=== PATIENT | male | born 1955 | race Caucasian/White ===

== ENCOUNTER 2019-10-16 07:08 | Day surgery (SDC) | payer MEDICARE ==
[2019-10-15 09:22] VITALS: BMI 17.6
[2019-10-16] MEDS ORDERED: ePHEDrine/0.9% NaCl/PF SYRINGE 50 mg/10 ml ONE (09:03)
[2019-10-16] MEDS ORDERED: PROPOFOL 200 MG/20 ML VIAL ONE (09:03)
[2019-10-16] MEDS ORDERED: Lidocaine 1% PF 5 ML VIAL ONE (09:03)
--- NOTE | 2019-10-16 09:27 | OP ---
DATE OF PROCEDURE: 10/16/2019 PROCEDURES PERFORMED: 1. Colonoscopy. 2. Polypectomy. PREPROCEDURE DIAGNOSIS: Colorectal cancer screening. POSTPROCEDURE DIAGNOSIS: Four polyps removed from the colon, submitted to Pathology. RECOMMENDATIONS: Await histopathology. Repeat colonoscopy in 3 years. ANESTHESIA: TIVA. PROCEDURE IN DETAIL: After the patient was informed of the risk, benefits, and possible complications of endoscopy including perforation, bleeding, reaction to medication, and aspiration, informed consent was obtained. The patient was brought to endoscopy suite, where he was sedated in gradual fashion. Once he was comfortable, a rectal examination was performed. The endoscope was advanced from the anal canal through the colon to the cecum, which was identified by ileocecal valve and appendiceal orifice. The prep was very good. The scope was then slowly removed. There were two polyps in the ascending colon about 0.7 cm in size, sessile, removed by hot snare polypectomy. There were two polyps in the transverse colon, one about 7 mm and the other 5 mm, both removed by snare polypectomy, one larger, hot, the small is cold. There was good hemostasis. There was no other polyp seen. Retroflexed views in the rectum were normal. Scope was removed. The patient then was brought to recovery room in stable condition. Job ID: [id number]
== END 2019-10-16 09:48 | disposition home or self-care (01) ==
LOC: SDC 07:08
PROVIDERS: ATTEND Internal Medicine Gastroenterology
PROC: 0DBK8ZX Excision of Ascending Colon, Via Natural or Artificial Opening Endoscopic, Diagnostic (ICD-10-PCS; principal; 2019-10-16)
PROC: 0DBL8ZX Excision of Transverse Colon, Via Natural or Artificial Opening Endoscopic, Diagnostic (ICD-10-PCS; 2019-10-16)
DX: Z12.11 Encounter for screening for malignant neoplasm of colon (principal); D12.2 Benign neoplasm of ascending colon; D12.3 Benign neoplasm of transverse colon; K76.89 Other specified diseases of liver; J44.9 Chronic obstructive pulmonary disease, unspecified; F32.9 Major depressive disorder, single episode, unspecified; F41.9 Anxiety disorder, unspecified; Z87.891 Personal history of nicotine dependence; Z79.51 Long term (current) use of inhaled steroids; Z79.899 Other long term (current) drug therapy; Z88.5 Allergy status to narcotic agent
CPT/HCPCS: 36415; 82607; 82746; 88305; J2001; J2704; J7620